=== PATIENT | female | born 1995 | race Caucasian/White ===

== ENCOUNTER 2019-12-09 06:45 | Emergency (ER) | payer MEDICAID ==
[~2019-12-09] VITALS: Ht 154.9 cm; Wt 45.4 kg
[2019-12-09 06:42] VITALS: BP 129/80
== END 2019-12-09 07:20 | disposition home or self-care (01) ==
LOC: ER 06:47
DX: R44.3 Hallucinations, unspecified (principal); Z72.820 Sleep deprivation; Z88.1 Allergy status to other antibiotic agents; Z88.8 Allergy status to other drugs, medicaments and biological substances